=== PATIENT | female | born 1945 | race Caucasian/White ===

== ENCOUNTER 2018-08-16 11:04 | Day surgery (SDC) | payer OTHER ==
[~2018-08-16] VITALS: Ht 154.9 cm; Wt 73.4 kg
[~2018-08-16 11:04] MED LIST: CYCL10; DIAZ5 PO; LISI20; NABU750; OXYACE5T PO; PREDNISOLONE; Tizanidine HCl2 MG PO
== END 2018-08-16 13:16 | disposition home or self-care (01) ==
LOC: ORSCSDS 11:04
PROVIDERS: Orthopaedic Surgery
PROC: 3E0R33Z Introduction of Anti-inflammatory into Spinal Canal, Percutaneous Approach (ICD-10-PCS; principal; 2018-08-16 12:30)
DX: M54.16 Radiculopathy, lumbar region (principal); I10 Essential (primary) hypertension; Z87.891 Personal history of nicotine dependence; Z79.899 Other long term (current) drug therapy
CPT/HCPCS: J1040

== ENCOUNTER 2018-12-03 11:13 | Day surgery (SDC) | payer OTHER ==
[~2018-12-03] VITALS: Ht 157.5 cm; Wt 72.2 kg
[~2018-12-03 11:13] MED LIST changes: +LISI20 PO; +NAPR220 PO
--- NOTE | 2018-12-03 12:29 | NUR ---
History, Chart, Medications and Allergies reviewed before start of procedure. Patient confirms NPO status and agrees with scheduled surgery. Lungs clear T/O to Auscultation. Patient reports completing Chlorhexadine shower X2 prior to admission to hospital. Pre-Op teaching done. Pt verbalizes understanding. Patient States Post-Procedure ride home has been arranged, with her friend.
--- NOTE | 2018-12-03 12:36 | NUR ---
IV STARTED BY MODESTO WISDOM, OPHTHALMIC ASSISTANT STUDENT WITHOUT DIFFICULTY.
--- NOTE | 2018-12-03 12:48 | NUR ---
PATIENT HAS AGREED TO ALLOW LEAD [employer] STUDENT MODESTO WISDOM TO BE INVOLVED IN HER CARE TODAY.
--- NOTE | 2018-12-03 18:24 | NUR ---
PT ARRIVED TO THE ROOM AT APPROXIMATELY 1715. PT ALERT AND ORIENTED UPON ARRIVAL TO THE ROOM. PT DENIED PAIN BUT REPORTED DISCOMFORT TO HER BACK. PT HAD MILD NAUSEA WHICH RESOLVED WITHOUT NEED FOR MEDICATION. VSS. WILL CONTINUE TO MONITOR.
--- NOTE | 2018-12-03 19:12 | NUR ---
SHIFT SUMMARY PAIN HAS BEEN MANAGED WITH PO PAIN MEDICATION POST-OP. PT IS ALERT AND ORIENTED. VSS. REPORT GIVEN TO DARIO THOMPSON.
--- NOTE | 2018-12-03 19:35 | NUR ---
ASSUMED CARE. PT DOZING OFF/ON. ABLE TO WAKE EASY. PT ABLE TO SIT UP TO DANGLE POSITION ON SIDE OF BED. ABLE TO MOVE ALL EXTREM. DENIES N/T. DRESSING TO LOWER BACK IS CDI. STATES PAIN IS TOLERABLE, DENIES N/V.
--- NOTE | 2018-12-03 23:14 | NUR ---
REPORT RECIEVED FROM JAY ORTIZ
--- NOTE | 2018-12-04 06:04 | NUR ---
SUMMARY: NO CHANGE SINCE RECIEVING REPORT. SURGICAL SITE WNL, PT DENIES N/T MOVING WELL. DENIES PAIN VSS. NO SAFETY CONCERNS
[2018-12-04] MEDS ORDERED: ACET500 PO (09:24)
[2018-12-04] MEDS ORDERED: ROXICODONE5 MG PO (09:30)
--- NOTE | 2018-12-04 11:24 | NUR ---
CLEARED FOR HOME BY PT, DENIES ANY PAIN, DC INSTRUCTIONS GIVEN, VERBALIZED UNDERSTANDING, ONE CORNER OF THE TAPE ON DRESSING NOTED TO BE STUCK ON PT'S GOWN, DRESSING REMOVED, NEW STERILE GAUZE DRESSING PLACED AND COVERED WITH OPSITE, INCISION APPEARED CLEAN &DRY, NO REDNESS NOTED, STERISTRIPS WERE INTACT.
[2019-01-18] MEDS ORDERED: ACET500 PO (13:27)
[2019-01-18] MEDS ORDERED: Bactrim Ds Tab1 EACH PO (13:28)
[2019-01-18] MEDS ORDERED: RIFA300 PO (13:29)
[2019-01-18] MEDS ORDERED: TRAM50 PO (13:33)
[2019-01-18] MEDS ORDERED: MUPIROCIN15 GM (13:35)
== END 2018-12-04 12:10 | disposition home or self-care (01) ==
LOC: ORSCMMR 11:13 → ORD 13:30 → ORSCMMR 13:30 → SURS 17:42 → ORSCMMR 12-04 12:10
PROVIDERS: Orthopaedic Surgery
PROC: 0SB20ZZ Excision of Lumbar Vertebral Disc, Open Approach (ICD-10-PCS; principal; 2018-12-03 13:30)
PROC: 01NB0ZZ Release Lumbar Nerve, Open Approach (ICD-10-PCS; principal; 2018-12-03 13:30)
DX: M51.16 Intervertebral disc disorders with radiculopathy, lumbar region (principal); I10 Essential (primary) hypertension; Z87.891 Personal history of nicotine dependence; Z79.899 Other long term (current) drug therapy
CPT/HCPCS: 88304; 97161; 97530; A9270; J0690; J1100; J2370; J2405; J2704; J2710; J3010; J3370; J7120

== ENCOUNTER → 2018-12-28 | Outpatient (CLI) | payer OTHER ==
[~2018-12-28] MED LIST changes: +ACET500 PO; +Bactrim Ds Tab1 EACH PO; +MUPIROCIN15 GM; +RIFA300 PO; +ROXICODONE5 MG PO; +TRAM50 PO
== END | disposition home or self-care (01) ==
LOC: LAB EV 09:28 → LAB SHORT 09:28
DX: T81.40XA Infection following a procedure, unspecified, initial encounter (principal)
CPT/HCPCS: 87070; 87075; 87077; 87147; 87186; 87205

== ENCOUNTER 2019-01-22 08:44 | Emergency (ER) | payer OTHER ==
[~2019-01-22] VITALS: Ht 160 cm; Wt 70.3 kg
== END 2019-01-22 09:16 | disposition home or self-care (01) ==
LOC: ER 08:44
DX: L98.9 Disorder of the skin and subcutaneous tissue, unspecified (principal); Z88.5 Allergy status to narcotic agent; Z79.899 Other long term (current) drug therapy; Z87.891 Personal history of nicotine dependence
CPT/HCPCS: 99283